=== PATIENT | male | born 1995 | race African-American/Black ===

== ENCOUNTER 2017-06-28 12:49 | Emergency (ER) | payer OTHER ==
[~2017-06-28] VITALS: Ht 185.4 cm; Wt 99.8 kg
--- NOTE | 2017-06-28 13:16 | RAD ---
Right foot 3 views. History: Right foot pain, fell last evening 3 views were taken of the right foot. There is an old healed right first metatarsal osteotomy with prior bunion surgery. There is a nondisplaced fracture at the proximal end of the right fifth metatarsal. No other fracture or acute osseous abnormality is noted. Impression: 1. Nondisplaced fracture proximal right fifth metatarsal.
[2017-06-28] MEDS ORDERED: HYDR-2758 PO (13:19)
--- NOTE | 2017-06-28 13:24 | PHYS DOC ---
Past History Past Medical History: No Pertinent History Additional Past Surgical Histo: arm fracture repair, right foot first metatarsal repair Smoking: Non-smoker Alcohol Use: None Drug Use: None Adult General Chief Complaint Chief Complaint: FOOT INJURY PAIN HPI HPI Patient is a pleasant otherwise healthy 21-year-old male who was running yesterday and felt pain in his right lateral foot when he stopped growing. He was so uncomfortable he began to limp. And drove himself home. Because patient stands during his Zak prolonged periods time he was unable to tolerate that they came in for an evaluation. Patient's pain is moderate in nature worse with walking but with rest and elevation. Patient is noted some localized swelling on the lateral aspect of the right foot over the fifth metatarsal proximal portion. Patient admits he's had prior surgery to the first metatarsal and prior injury to the lateral aspect of the fifth metatarsal. he denies any knee pain, hip pain or other symptoms. Patient has no numbness and tingling distal to the injury Review of Systems Review of Systems Musculoskeletal: Denies back pain or joint pain [] Integument: Denies rash or skin lesions [] Neurologic: Denies headache, focal weakness or sensory changes [] All other systems were reviewed and found to be within normal limits, except as documented in this note. Allergies Allergies Allergies Uncoded Allergies Type Severity Reaction Last Updated Verified peanuts Allergy Severe 06/28/17 Physical Exam Physical Exam Constitutional: Well developed, well nourished, no acute distress, non-toxic appearance. [] Skin: Warm, dry, no erythema, no rash. [] Extremities: tenderness, no cyanosis, no clubbing, ROM intact, no edema. She has marked tenderness to palpation of the lateral aspect of the right foot with local soft tissue swelling there is no warmth of the skin no erythematous localized soft tissue swelling and bony tenderness over the fifth metatarsal proximal portion. There is well-healed scar over the fifth metatarsal there is normal sensation to light touch and proprioception. Patient has brisk capillary refill brisk peripheral pulses over the foot itself with normal sensation. Was not tested as he was into his discomfort. [] Neurologic: Alert and oriented X 3, normal motor function, normal sensory function, no focal deficits noted. [] Psychologic: Affect normal, judgement normal, mood normal. [] EKG EKG [] Radiology/Procedures Radiology/Procedures [] Course & Med Decision Making Course & Med Decision Making Pertinent Labs and Imaging studies reviewed. (See chart for details) []he is 3 view foot films read by me demonstrate a nondisplaced proximal metatarsal fracture of the fifth metatarsal is not displaced but more than 1 mm it is in zone 2 of that proximal portion of the abscesses. There is no foreign body no periosteal lifting or evidence of foreign air . As the patient's location of injury and pain patient was given oral Lortab he had the foot splinted in position of comfort with a loose wrap to promote swelling. Patient be referred to optimization specialist on or take surgeon for revision of his Howard fracture. Patient is neurovascularly intact no evidence of compartment syndrome at this time precautions given at the bedside parents. discharge: I've spoken with the patient and/or caregivers. I've explained the patient's condition, diagnosis and treatment plan based on information available to me at this time. I've answered the patient's and/or caregivers questions and addressed any concerns. The patient and/or caregivers have a good understanding the patient's diagnosis, condition and treatment plan as can be expected at this point. Vital signs have been stabilized. The patient's condition is stable for discharge from the emergency department. The patient will pursue further outpatient evaluation with her primary care provider or other designated consulting physician as outlined in the discharge instructions. Patient and/or caregivers are agreeable to this plan of care and follow-up instructions have been explained in detail. The patient and/or caregivers have received these instructions in written format and expressed understanding of these discharge instructions. The patient and her caregivers are aware that if any significant change in condition or worsening of symptoms should prompt him to immediately return to this of the closest emergency department. If an emergent department is not readily available I would encourage him to call 911. Oh Disclaimer Dragon Disclaimer This electronic medical record was generated, in whole or in part, using a voice recognition dictation system. Departure Departure: Impression: Primary Impression: Howard fracture Disposition: HOME, SELF-CARE Condition: STABLE Referrals: NON,STAFF (PCP) Patient Instructions: Metatarsal Fracture with [facility], Metatarsal Fracture, Undisplaced Additional Instructions: discharge: I've spoken with the patient and/or caregivers. I've explained the patient's condition, diagnosis and treatment plan based on information available to me at this time. I've answered the patient's and/or caregivers questions and addressed any concerns. The patient and/or caregivers have a good understanding the patient's diagnosis, condition and treatment plan as can be expected at this point. Vital signs have been stabilized. The patient's condition is stable for discharge from the emergency department. The patient will pursue further outpatient evaluation with her primary care provider or other designated consulting physician as outlined in the discharge instructions. Patient and/or caregivers are agreeable to this plan of care and follow-up instructions have been explained in detail. The patient and/or caregivers have received these instructions in written format and expressed understanding of these discharge instructions. The patient and her caregivers are aware that if any significant change in condition or worsening of symptoms should prompt him to immediately return to this of the closest emergency department. If an emergent department is not readily available I would encourage him to call 911. We have also been given follow-up with podiatry. Dr. Taj Norris Address: [address] [place] [address] Scripts Hydrocodone Bit/Acetaminophen (HYDROCODONE-APAP 5-325 ) 1 Each Tablet 1 TAB PO PRN Q6HRS Y for PAIN for 3 Days, #10 TAB 0 Refills Prov: CATARINO DAS MD 06/28/17 CATARINO DAS MD Jun 28, 2017 13:24
[2017-06-28] MEDS ORDERED: HYDROcodone/APAP 5/325MG 1 TAB TABLET PO ONE (13:30)
== END 2017-06-28 13:45 | disposition home or self-care (01) ==
LOC: ER 12:49
DX: S92.354A Nondisplaced fracture of fifth metatarsal bone, right foot, initial encounter for closed fracture (principal); Z91.010 Allergy to peanuts; X58.XXXA Exposure to other specified factors, initial encounter; Y93.02 Activity, running; Y99.8 Other external cause status; Y92.89 Other specified places as the place of occurrence of the external cause
CPT/HCPCS: 29515; 73630; 99284